=== PATIENT | male | born 1935 | race Caucasian/White ===

== ENCOUNTER 2016-09-03 09:26 | Emergency (ER) | payer MEDICARE ==
--- NOTE | 2016-09-09 14:24 | ER ---
ADMIT: 09/03/2016 RM/LOC: ER [facility] MR#: [id number] [id number] [place], [place] [address] Emergency Room Report SEX: M AGE: 81 : 1935 DATE: 09/03/2016 The patient is an 81-year-old, who was at the clinic today and because the ultrasound is out of order, they sent him over to us for an evaluation of his left lower leg to rule out DVT. Apparently he has had DVT in the back and they were concerned when he complained of anterior lower leg pain. There is no erythema. There is no warmth and no swelling in the legs. PAST MEDICAL HISTORY: DVT, eczema, and COPD. ALLERGIES: CEPHALEXIN, PENICILLIN, STATINS, AND PREDNISONE. PHYSICAL EXAMINATION: GENERAL: He is just slightly anxious. VITAL SIGNS: Blood pressure 141/72, heart rate 56, respiration 18, temp 98.1, O2 sats 98%. EXTREMITIES: On examination, there is tenderness on deep palpation at the lower aspect of the calf as well as the anterior lower leg and calf area. He is a bit antalgic, but he uses a cane to ambulate. Pulses are full and equal bilaterally. No vascular compromise noted. He is oriented x4. SKIN: Otherwise intact. RESPIRATIONS: No distress. CVS: Regular in rate and rhythm. Ultrasound, no DVT. CLINICAL IMPRESSION: Left lower leg pain, rule out deep venous thrombosis. The patient will be released back to the [facility] where he said he is supposed to be going back after we get the results of the DVT studies. He is to elevate the leg, wear pressure stockings. Follow up with the [facility] and continue home medications. EDYTA Phelps / John Hill MD / estee JOB #: [id number] CC: John Hill MD, Attending Physician Rah Dove, Family Physician
[2016-10-27] MEDS ORDERED: SYMBICORT160 MCG/6 IH (12:02)
[2016-10-27] MEDS ORDERED: FLEXERIL DPS5 MG PO (12:02)
[2016-10-27] MEDS ORDERED: DUONEB DPS3 ML IH (12:02)
[2016-10-27] MEDS ORDERED: PROAIR RESPICL90 MCG IH (12:02)
[2016-10-27] MEDS ORDERED: FLONASE 0.05% D16 GM NS (12:04)
[2016-10-27] MEDS ORDERED: DOCUSATE SODIU1 EACH PO (12:04)
[2016-10-27] MEDS ORDERED: GUAIFENESIN400 MG PO (12:05)
[2016-10-27] MEDS ORDERED: MONTELUKAST SOD10 MG PO (12:06)
[2016-10-27] MEDS ORDERED: NAPROXEN375 MG PO (12:06)
[2016-10-27] MEDS ORDERED: BACTROBAN OINT.22 GM TP (12:07)
== END 2016-09-03 10:56 | disposition home or self-care (01) ==
LOC: ER 09:26
DX: M79.662 Pain in left lower leg (principal); J44.9 Chronic obstructive pulmonary disease, unspecified; Z86.718 Personal history of other venous thrombosis and embolism; Z88.1 Allergy status to other antibiotic agents; Z88.0 Allergy status to penicillin; Z88.8 Allergy status to other drugs, medicaments and biological substances